=== PATIENT | female | born 1970 | race African-American/Black ===

== ENCOUNTER 2017-09-05 05:23 | Inpatient (IN) | payer BC ==
[2017-09-05] MEDS ORDERED: CEFAZOLIN 1 GM INJ (07:00)
[2017-09-05] MEDS ORDERED: PROPOFOL 20 ML (07:10)
[2017-09-05] MEDS ORDERED: ROCURONIUM 50 MG INJ ×2 (07:10→09:04)
[2017-09-05] MEDS ORDERED: NEOSTIGMINE 3 MG/3 ML SYRINGE ×2 (07:10→07:15)
[2017-09-05] MEDS ORDERED: SUCCINYLCHOLINE CHLORIDE 100 MG/5 ML SYG IV (07:10)
[2017-09-05] MEDS ORDERED: LIDOCAINE 2% (SDV) 5 ML INJ (07:10)
[2017-09-05] MEDS ORDERED: GLYCOPYRROLATE 1 MG INJ (07:10)
[2017-09-05] MEDS ORDERED: SOD CHLORIDE 0.9% 1,000 ML IV (07:11)
[2017-09-05] MEDS ORDERED: ROPIVACAINE 0.5 % 30 ML VIAL (07:14)
[2017-09-05] MEDS ORDERED: MIDAZOLAM 1 MG/ML 2 ML INJ (07:15)
[2017-09-05] MEDS ORDERED: morphine 2 MG INJ IV (07:30)
[2017-09-05] MEDS ORDERED: ONDANSETRON 4 MG INJ IV ×2 (07:30→09:00)
[2017-09-05] MEDS ORDERED: OXYCODONE/ACETAMINOPHEN (5/325) TAB PO ×4 (07:30→09:00)
[2017-09-05] MEDS ORDERED: hydrALAzine 20 MG INJ (08:11)
[2017-09-05] MEDS ORDERED: DIPHENHYDRAMINE 50 MG INJ IV (09:00)
[2017-09-05] MEDS ORDERED: FENTAnyl 50 MCG/ML VIAL IV ×3 (09:00)
[2017-09-05] MEDS ORDERED: LABETALOL HCL 20MG INJ IV (09:00)
[2017-09-05] MEDS ORDERED: hydrALAzine 20 MG INJ IV (09:00)
[2017-09-05] MEDS ORDERED: EPHEDrine SULFATE 50 MG/5 ML SYG IV (09:00)
[2017-09-05] MEDS ORDERED: MIDAZOLAM 1 MG/ML 2 ML INJ IV (09:00)
[2017-09-05] MEDS ORDERED: HYDROmorphONE (0.2 MG/ML) 10ML SYG IV ×3 (09:00)
[2017-09-05] MEDS: SOD CHLORIDE 0.9% 1,000 ML IV ×2 (11:05→21:05)
[2017-09-05] MEDS ORDERED: CEFAZOLIN 1 GM INJ IV (11:30)
[2017-09-05] MEDS ORDERED: DIPHENHYDRAMINE 25 MG CAP PO (11:30)
[2017-09-05] MEDS ORDERED: morphine 10 MG INJ IV (11:30)
[2017-09-05] MEDS ORDERED: BISACODYL 10 MG SUPP PR (11:30)
[2017-09-05] MEDS: ONDANSETRON 4 MG INJ IV (11:33)
[2017-09-05] MEDS: MEPERIDINE 25 MG INJ IV (11:33)
[2017-09-05] MEDS: METOCLOPRAMIDE 10 MG INJ IV (12:22)
[2017-09-05] MEDS: AMLODIPINE 10 MG TAB PO (14:00)
[2017-09-05] MEDS: LOSARTAN 50 MG TAB PO (14:00)
[2017-09-05] MEDS: POLYETHYLENE GLYCOL 17 GM PACKET PO (14:00)
[2017-09-05 14:34] LABS: ADD MAN DIFF? NO
[2017-09-05 14:39] LABS: BASOPHILS % 0.4 % (0.0-2.0); EOSINOPHILS % 0.1 % (0.0-7.0); HEMATOCRIT 41.4 % (37.0-47.0); HEMOGLOBIN 12.8 g/dl (12.0-16.0); LYMPHOCYTES # 0.9 10^3/ul (0.8-2.9); MEAN CORPUSCULAR HEMOGLOBIN 28.6 pg (29.0-33.0); MEAN CORPUSCULAR HGB CONC 30.9 g/dl (32.0-37.0); MEAN CORPUSCULAR VOLUME 92.4 fl (82.0-101.0); MEAN PLATELET VOLUME 11.2 fl (7.4-10.4); MONOCYTE # 0.4 10^3/ul (0.3-0.9); NEUTROPHIL # 7.2 10^3/ul (1.6-7.5); NEUTROPHILS % 84.1 % (39.0-77.0); PLATELET COUNT 212 10^3/UL (140-415); RED BLOOD COUNT 4.48 10^6/ul (4.20-5.40); RED CELL DISTRIBUTION WIDTH 14.2 % (11.5-14.5)
[2017-09-05 14:39] LABS: WHITE BLOOD COUNT 8.6 10^3/ul (4.8-10.8)
[2017-09-05 14:57] LABS: ALBUMIN/GLOBULIN RATIO 1.39; ANION GAP 16 (8-16)
[2017-09-05] MEDS ORDERED: LOSARTAN 50 MG TAB PO (15:00)
[2017-09-05 15:11] LABS: ALANINE AMINOTRANSFERASE 27 IU/L (13-69); ALBUMIN 3.9 g/dl (3.3-4.9); ALKALINE PHOSPHATASE 62 IU/L (42-121); ASPARTATE AMINO TRANSFERASE 19 IU/L (15-46); BLOOD UREA NITROGEN 35 mg/dl (7-20); CALCIUM 7.2 mg/dl (8.4-10.2); CARBON DIOXIDE 15 mmol/L (21-31); CHLORIDE 117 mmol/L (97-110); CREATININE 2.59 mg/dl (0.44-1.00); GLUCOSE 112 mg/dl (70-220); POTASSIUM 4.3 mmol/L (3.5-5.1); SODIUM 144 mmol/L (135-144); TOTAL PROTEIN 6.7 g/dl (6.1-8.1)
[2017-09-05] MEDS: PANTOPRAZOLE (EC) 40 MG TAB PO (16:40)
[2017-09-05] MEDS: OXYCODONE/ACETAMINOPHEN (5/325) TAB PO (16:41)
[2017-09-05] MEDS: SENNA/DOCUSATE NA (8.6MG/50MG) TAB PO (20:30)
[2017-09-05] MEDS: morphine LIQ (10 MG/5 ML) CUP PO (20:30)
[2017-09-05] MEDS ORDERED: TOPIRAMATE 100 MG TAB PO (21:00)
[2017-09-05] MEDS: TOPIRAMATE SPRINKLE 25 MG CAP PO (21:47)
[2017-09-05] MEDS: CEFAZOLIN 2 GM/50 ML (PMX) 50 ML IVPB (22:31)
[2017-09-06] MEDS: CEFAZOLIN 2 GM/50 ML (PMX) 50 ML IVPB ×3 (03:28→18:02)
[2017-09-06] MEDS: SOD CHLORIDE 0.9% 1,000 ML IV (03:34)
[2017-09-06] MEDS: morphine LIQ (10 MG/5 ML) CUP PO ×2 (03:39→11:04)
[2017-09-06] MEDS: PANTOPRAZOLE (EC) 40 MG TAB PO (05:41)
[2017-09-06 08:37] LABS: ADD MAN DIFF? NO
[2017-09-06 08:40] LABS: WHITE BLOOD COUNT 4.4 10^3/ul (4.8-10.8)
[2017-09-06 08:40] LABS: BASOPHILS % 0.5 % (0.0-2.0); EOSINOPHILS % 0.9 % (0.0-7.0); HEMATOCRIT 37.5 % (37.0-47.0); HEMOGLOBIN 11.7 g/dl (12.0-16.0); LYMPHOCYTES # 0.9 10^3/ul (0.8-2.9); LYMPHOCYTES % 21.1 % (15.0-51.0); MEAN CORPUSCULAR HEMOGLOBIN 28.3 pg (29.0-33.0); MEAN CORPUSCULAR HGB CONC 31.2 g/dl (32.0-37.0); MEAN CORPUSCULAR VOLUME 90.8 fl (82.0-101.0); MONOCYTE # 0.4 10^3/ul (0.3-0.9); MONOCYTES % 8.5 % (0.0-11.0); PLATELET COUNT 203 10^3/UL (140-415); RED BLOOD COUNT 4.13 10^6/ul (4.20-5.40)
[2017-09-06] MEDS ORDERED: AMLODIPINE 10 MG TAB PO (09:00)
[2017-09-06] MEDS: OXYCODONE/ACETAMINOPHEN (5/325) TAB PO ×3 (09:03→21:08)
[2017-09-06] MEDS: AMLODIPINE 10 MG TAB PO (09:03)
[2017-09-06] MEDS: SENNA/DOCUSATE NA (8.6MG/50MG) TAB PO ×2 (09:04→21:09)
[2017-09-06] MEDS: LOSARTAN 50 MG TAB PO (09:04)
[2017-09-06] MEDS: POLYETHYLENE GLYCOL 17 GM PACKET PO (09:04)
[2017-09-06] MEDS: TOPIRAMATE SPRINKLE 25 MG CAP PO ×2 (09:04→21:16)
[2017-09-06 09:08] LABS: ANION GAP 13 (8-16); BLOOD UREA NITROGEN 26 mg/dl (7-20); CALCIUM 7.1 mg/dl (8.4-10.2); CARBON DIOXIDE 17 mmol/L (21-31); CHLORIDE 115 mmol/L (97-110); CREATININE 2.41 mg/dl (0.44-1.00); GLUCOSE 99 mg/dl (70-220); POTASSIUM 4.3 mmol/L (3.5-5.1); SODIUM 141 mmol/L (135-144)
[2017-09-06 10:35] LABS: ADD UMIC YES; UR ASCORBIC ACID NEGATIVE (NEGATIVE); UR BACTERIA FEW /HPF (NONE SEEN); UR BILIRUBIN (Dip) NEGATIVE (NEGATIVE); UR BLOOD (Dip) 2+ mg/dL (NEGATIVE); UR CLARITY CLEAR (CLEAR); UR COLOR STRAW (YELLOW); UR GLUCOSE (Dip) NEGATIVE (NEGATIVE); UR KETONES (Dip) NEGATIVE (NEGATIVE); UR LEUKOCYTE ESTERASE (Dip) TRACE Leu/ul (NEGATIVE); UR NITRITE (Dip) NEGATIVE (NEGATIVE); UR RBC 1 /HPF (0-5); UR SPECIFIC GRAVITY (Dip) 1.009 (1.003-1.030); UR TOTAL PROTEIN (Dip) NEGATIVE (NEGATIVE); UR UROBILINOGEN (Dip) NEGATIVE (NEGATIVE); UR WBC 22 /HPF (0-5)
[2017-09-06] MEDS: NA BICARBONATE 650 MG TAB PO ×2 (11:03→21:08)
[2017-09-07] MEDS: CEFAZOLIN 2 GM/50 ML (PMX) 50 ML IVPB (03:00)
[2017-09-07] MEDS: morphine LIQ (10 MG/5 ML) CUP PO (05:56)
[2017-09-07] MEDS: PANTOPRAZOLE (EC) 40 MG TAB PO (05:57)
[2017-09-07 07:34] LABS: ADD MAN DIFF? NO
[2017-09-07 07:39] LABS: WHITE BLOOD COUNT 3.1 10^3/ul (4.8-10.8)
[2017-09-07 07:39] LABS: EOSINOPHILS # 0.1 10^3/ul (0.0-0.5); EOSINOPHILS % 2.9 % (0.0-7.0); HEMATOCRIT 32.8 % (37.0-47.0); HEMOGLOBIN 10.3 g/dl (12.0-16.0); LYMPHOCYTES # 0.7 10^3/ul (0.8-2.9); LYMPHOCYTES % 23.3 % (15.0-51.0); MEAN CORPUSCULAR HEMOGLOBIN 28.7 pg (29.0-33.0); MEAN CORPUSCULAR HGB CONC 31.4 g/dl (32.0-37.0); MEAN CORPUSCULAR VOLUME 91.4 fl (82.0-101.0); MEAN PLATELET VOLUME 10.9 fl (7.4-10.4); MONOCYTE # 0.2 10^3/ul (0.3-0.9); MONOCYTES % 7.8 % (0.0-11.0); PLATELET COUNT 174 10^3/UL (140-415); RED BLOOD COUNT 3.59 10^6/ul (4.20-5.40); RED CELL DISTRIBUTION WIDTH 14.3 % (11.5-14.5)
[2017-09-07 08:29] LABS: ALANINE AMINOTRANSFERASE 21 IU/L (13-69); ALKALINE PHOSPHATASE 48 IU/L (42-121); ANION GAP 13 (8-16); ASPARTATE AMINO TRANSFERASE 13 IU/L (15-46); BLOOD UREA NITROGEN 21 mg/dl (7-20); CALCIUM 7.8 mg/dl (8.4-10.2); CARBON DIOXIDE 18 mmol/L (21-31); CHLORIDE 114 mmol/L (97-110); CREATININE 2.37 mg/dl (0.44-1.00); GLUCOSE 99 mg/dl (70-220); POTASSIUM 4.1 mmol/L (3.5-5.1); SODIUM 141 mmol/L (135-144)
[2017-09-07] MEDS: NA BICARBONATE 650 MG TAB PO (08:29)
[2017-09-07] MEDS: SENNA/DOCUSATE NA (8.6MG/50MG) TAB PO (08:29)
[2017-09-07] MEDS: POLYETHYLENE GLYCOL 17 GM PACKET PO (08:29)
[2017-09-07] MEDS: TOPIRAMATE SPRINKLE 25 MG CAP PO (08:30)
[2017-09-07] MEDS: AMLODIPINE 10 MG TAB PO (08:31)
[2017-09-07] MEDS: LOSARTAN 50 MG TAB PO (08:31)
[2017-09-07 09:40] LABS: PHOSPHORUS 3.9 mg/dl (2.5-4.9)
[2017-09-07] MEDS ORDERED: MAGNESIUM HYDROXIDE 30ML CUP PO (21:00)
[2017-09-09 17:10] LABS: PTH CALCIUM 7.7 mg/dL (8.6-10.2)
== END 2017-09-07 11:05 | disposition home or self-care (01) | DRG 507 ==
LOC: SDS 05:23 → REC 11:12 → MS1 12:35 → MS4 17:42
PROC: 0RHK44Z Insertion of Internal Fixation Device into Left Shoulder Joint, Percutaneous Endoscopic Approach (ICD-10-PCS; principal; 2017-09-05 07:00)
PROC: 0LQ24ZZ Repair Left Shoulder Tendon, Percutaneous Endoscopic Approach (ICD-10-PCS; 2017-09-05 07:00)
PROC: 0RNK4ZZ Release Left Shoulder Joint, Percutaneous Endoscopic Approach (ICD-10-PCS; 2017-09-05 07:00)
PROC: 0PBB4ZZ Excision of Left Clavicle, Percutaneous Endoscopic Approach (ICD-10-PCS; 2017-09-05 07:00)
DX: S46.012A Strain of muscle(s) and tendon(s) of the rotator cuff of left shoulder, initial encounter (principal); N18.4 Chronic kidney disease, stage 4 (severe); Q61.3 Polycystic kidney, unspecified; M75.02 Adhesive capsulitis of left shoulder; M75.42 Impingement syndrome of left shoulder; M65.812 Other synovitis and tenosynovitis, left shoulder; M19.012 Primary osteoarthritis, left shoulder; R00.1 Bradycardia, unspecified; I12.9 Hypertensive chronic kidney disease with stage 1 through stage 4 chronic kidney disease, or unspecified chronic kidney disease; Y93.64 Activity, baseball; T41.295A Adverse effect of other general anesthetics, initial encounter; Y92.234 Operating room of hospital as the place of occurrence of the external cause
CPT/HCPCS: 80048; 80053; 81001; 83970; 84100; 84703; 85025; 93005

== ENCOUNTER 2017-12-12 05:32 | Day surgery (SDC) | payer BC ==
[2017-12-12] MEDS ORDERED: MIDAZOLAM 1 MG/ML 2 ML INJ (06:55)
[2017-12-12] MEDS ORDERED: ROPIVACAINE 0.5 % 30 ML VIAL (06:57)
[2017-12-12] MEDS ORDERED: SOD CHLORIDE 0.9% 1,000 ML IV (07:06)
[2017-12-12] MEDS ORDERED: ONDANSETRON 4 MG INJ IV ×2 (07:30→08:30)
[2017-12-12] MEDS ORDERED: OXYCODONE/ACETAMINOPHEN (5/325) TAB PO ×3 (07:30→08:30)
[2017-12-12] MEDS ORDERED: morphine 2 MG INJ IV (07:30)
[2017-12-12] MEDS ORDERED: ROCURONIUM 50 MG INJ (07:44)
[2017-12-12] MEDS ORDERED: ONDANSETRON 4 MG INJ (07:44)
[2017-12-12] MEDS ORDERED: DEXAMETHASONE 4 MG/ML 1 ML INJ (07:44)
[2017-12-12] MEDS ORDERED: FAMOTIDINE 20 MG INJ (07:44)
[2017-12-12] MEDS ORDERED: PROPOFOL 20 ML (07:44)
[2017-12-12] MEDS ORDERED: LIDOCAINE 2% (SDV) 5 ML INJ (07:44)
[2017-12-12] MEDS ORDERED: SUCCINYLCHOLINE CHLORIDE 100 MG/5 ML SYG IV (07:44)
[2017-12-12] MEDS ORDERED: SUGAMMADEX SODIUM 200 MG/2 ML VIAL IV (07:47)
[2017-12-12] MEDS ORDERED: MEPERIDINE 25 MG INJ IV (08:30)
[2017-12-12] MEDS ORDERED: FENTAnyl 50 MCG/ML VIAL IV ×3 (08:30)
[2017-12-12] MEDS ORDERED: ACETAMINOPHEN 1000MG/100ML IV 100 ML IVPB (08:30)
[2017-12-12] MEDS ORDERED: PROCHLORPERAZINE 10 MG INJ IV (08:30)
[2017-12-12] MEDS ORDERED: LABETALOL HCL 20MG INJ IV (08:30)
[2017-12-12] MEDS ORDERED: hydrALAzine 20 MG INJ IV (08:30)
[2017-12-12] MEDS ORDERED: DIPHENHYDRAMINE 50 MG INJ IV (08:30)
[2017-12-12] MEDS ORDERED: HYDROmorphONE (0.2 MG/ML) 10ML SYG IV ×3 (08:30)
== END 2017-12-12 10:00 | disposition home or self-care (01) ==
LOC: SDS 05:32
DX: M75.02 Adhesive capsulitis of left shoulder (principal); I12.9 Hypertensive chronic kidney disease with stage 1 through stage 4 chronic kidney disease, or unspecified chronic kidney disease; N18.4 Chronic kidney disease, stage 4 (severe)
CPT/HCPCS: 23700